=== PATIENT | female | born 1965 | race African-American/Black ===

== ENCOUNTER 2021-01-11 12:52 | Emergency (ER) | payer MEDICAID ==
[~2021-01-11] VITALS: Ht 157.5 cm; Wt 73.0 kg
[2021-01-11 12:58] VITALS: BP 146/82
[2021-01-11] MEDS ORDERED: KETOROLAC 30MG/ML VIAL IM ONE (13:30)
[2021-01-11] MEDS ORDERED: ACETAMINOPHEN 325MG TABLET PO ONE (13:30)
[2021-01-11] MEDS ORDERED: NAPR-1176 MT (14:20)
[2021-01-11] MEDS ORDERED: TOPUD MT (14:20)
== END 2021-01-11 14:30 | disposition home or self-care (01) ==
LOC: ER 12:52
DX: M54.5 Low back pain (principal); G89.29 Other chronic pain; M54.30 Sciatica, unspecified side; I10 Essential (primary) hypertension; Z88.0 Allergy status to penicillin; Z88.2 Allergy status to sulfonamides; Z88.3 Allergy status to other anti-infective agents; Z91.040 Latex allergy status
CPT/HCPCS: 81025; 96372; 99283; J1885

== ENCOUNTER 2024-01-16 18:49 | Inpatient (IN) | payer OTHER, MEDICAID ==
[~2024-01-16] VITALS: Ht 149.9 cm; Wt 53.1 kg
[~2024-01-16 18:49] MED LIST: NAPR-1176 MT; TOPUD MT
[2024-01-16 20:16] LABS: HEMATOCRIT. 40.4 % (36.0-48.0); MEAN CORPUSCULAR HEMOGLOBIN 31.6 pg (28.0-32.0); MEAN CORPUSCULAR HGB CONC 32.2 g/dL (31.0-37.0); MEAN CORPUSCULAR VOLUME 98.2 fL (81.0-99.0); MEAN PLATELET VOLUME 7.5 fl (7.4-10.4); PLATELET 508 x1000/uL (130-400); RED BLOOD CELL COUNT 4.11 mill/uL (4.2-5.4); RED CELL DISTRIBUTION WIDTH 14.5 % (11.6-14.6); WHITE BLOOD COUNT 22.9 x1000/uL (4.5-11.0)
[2024-01-16 20:18] LABS: CHLORIDE 105 mEq/L (98-107); POTASSIUM 4.1 mEq/L (3.5-5.1); SODIUM 140 mEq/L (136-145)
[2024-01-16 20:19] LABS: CARBON DIOXIDE 19 mEq/L (21-32)
[2024-01-16 20:20] LABS: CALCIUM 9.8 mg/dL (8.7-10.4)
[2024-01-16 20:23] LABS: DIFFERENTIAL COMMENT 1
[2024-01-16 20:24] LABS: CREATININE 0.7 mg/dL (0.6-1.0); GLUCOSE 60 mg/dL (70-105); UREA NITROGEN BLOOD 14 mg/dL (9-23)
[2024-01-16 20:25] LABS: TROPONIN I HIGH SENSITIVITY 9 ng/L (3.0-34)
[2024-01-16] MEDS: NITROGLYCERIN 0.4MG TABLET SL SL ONE (21:10)
[2024-01-16 22:23] LABS: TROPONIN I HIGH SENSITIVITY 13 ng/L (3.0-34)
[2024-01-16 22:31] LABS: LACTIC ACID 4.1 mmol/L (0.4-2.0)
[2024-01-16] MEDS ORDERED: SODIUM CHLORIDE 0.9% 1,000 ML IV ONE (23:30)
[2024-01-16 23:56] LABS: CLARITY URINE CLEAR (CLEAR); COLOR URINE YELLOW (YELLOW); GLUCOSE URINE NEGATIVE (NEGATIVE); KETONES URINE 2+ (NEGATIVE); LEUKOCYTE ESTERASE URINE NEGATIVE (NEGATIVE); NITRITE URINE NEGATIVE (NEGATIVE); OCCULT BLOOD URINE 2+ (NEGATIVE); PH URINE 5.5 (4.5-8.0); PROTEIN URINE 1+ (NEGATIVE); SPECIFIC GRAVITY URINE 1.014 (1.005-1.030)
[2024-01-17 03:11] LABS: SQUAMOUS EPITHELIAL CELL URINE FEW /lpf (RARE/1+)
[2024-01-17 03:12] LABS: RBC URINE 0-2 /hpf (0-2); WBC URINE 0-2 /hpf (0-2)
[2024-01-17 03:13] LABS: BACTERIA URINE NONE SEEN
[2024-01-17] MEDS: SODIUM CHLORIDE 0.9% 1000ML BAG (SEPSIS BOLUS) IV ONE ×2 (04:36)
[2024-01-17] MEDS: CEFTRIAXONE 2GM/50ML 50 ML IV ONE (04:37)
[2024-01-17 07:39] LABS: TROPONIN I HIGH SENSITIVITY 21 ng/L (3.0-34)
[2024-01-17] MEDS ORDERED: IPRATROPIUM/ALBUTEROL 0.5-3(2.5)MG/3ML NEB HHN PRN (09:30)
[2024-01-17] MEDS ORDERED: CLONIDINE 0.1MG TABLET PO PRN (09:30)
[2024-01-17] MEDS ORDERED: DIPHENHYDRAMINE 50MG/ML VIAL IV PRN (09:30)
[2024-01-17] MEDS ORDERED: ONDANSETRON HCL 4MG/2ML INJ IV PRN (09:30)
[2024-01-17 10:49] VITALS: BP 126/87; PULSE 85; RESP 18; TEMP 36.9184
[2024-01-17] MEDS ORDERED: LEVOFLOXACIN 500MG PREMIX 100 ML IV SCH (11:00)
[2024-01-17] MEDS: ACETAMINOPHEN 325MG TABLET PO PRN (11:36)
[2024-01-17 11:39] LABS: PLATELET ESTIMATE INCREASED
[2024-01-17] MEDS ORDERED: PARO-150 PO (11:39)
[2024-01-17 12:00] VITALS: BP 126/67; PULSE 79; RESP 20; TEMP 36.55848; O2SAT 95
[2024-01-17] MEDS: PAROXETINE HCL 10MG TABLET PO SCH (13:29)
[2024-01-17] MEDS: LEVOFLOXACIN 500MG PREMIX 100 ML IV SCH (13:30)
[2024-01-17 14:36] LABS: *AMPHETAMINES SCREEN URINE NEGATIVE (NEGATIVE); *BARBITURATES SCREEN URINE NEGATIVE (NEGATIVE); *BENZODIAZEPINES SCREEN URINE NEGATIVE (NEGATIVE); *COCAINE SCREEN URINE NEGATIVE (NEGATIVE); METHADONE URINE SCREEN NEGATIVE (NEGATIVE); OPIATES URINE SCREEN NEGATIVE (NEGATIVE); PHENCYCLIDINE URINE SCREEN NEGATIVE (NEGATIVE)
[2024-01-17 14:37] LABS: CANNABINOID URINE SCREEN PRESUMPTIVE POSITIVE (NEGATIVE); ECSTASY MDMA SCREEN URINE NEGATIVE (NEGATIVE)
[2024-01-17 16:00] VITALS: BP 126/62; PULSE 71; RESP 18; TEMP 36.55848; O2SAT 96
[2024-01-17] MEDS: LORATADINE 10MG TABLET PO PRN (16:29)
[2024-01-17] MEDS: LEVOFLOXACIN 250MG PREMIX 50 ML IV SCH (16:29)
[2024-01-17 20:00] VITALS: BP 131/70; PULSE 78; RESP 19; TEMP 36.6696; O2SAT 96
[2024-01-18] VITALS: BP 139/76; PULSE 70; RESP 19; TEMP 36.6696; O2SAT 97
[2024-01-18 04:00] VITALS: BP 148/80; PULSE 65; RESP 18; TEMP 36.72516; O2SAT 96
[2024-01-18 06:37] LABS: BASOPHILS % 1.2 % (0.0-2.0); EOSINOPHILS % 0.4 % (0.0-5.0); HEMATOCRIT. 38.9 % (36.0-48.0); HEMOGLOBIN. 12.8 g/dL (12.0-16.0); LYMPHOCYTES % 38.1 % (20.0-50.0); MEAN CORPUSCULAR HEMOGLOBIN 31.9 pg (28.0-32.0); MEAN CORPUSCULAR HGB CONC 32.8 g/dL (31.0-37.0); MEAN CORPUSCULAR VOLUME 97.1 fL (81.0-99.0); MEAN PLATELET VOLUME 7.7 fl (7.4-10.4); MONOCYTES % 7.4 % (2.0-8.0); NEUTROPHILS % 52.9 % (40.0-76.0); PLATELET 452 x1000/uL (130-400); RED CELL DISTRIBUTION WIDTH 14.2 % (11.6-14.6)
[2024-01-18 07:31] LABS: CALCIUM 9.9 mg/dL (8.7-10.4); CARBON DIOXIDE 27 mEq/L (21-32); CHLORIDE 108 mEq/L (98-107); POTASSIUM 3.6 mEq/L (3.5-5.1); SODIUM 142 mEq/L (136-145)
[2024-01-18 07:36] LABS: CREATININE 0.8 mg/dL (0.6-1.0)
[2024-01-18 07:37] LABS: GLUCOSE 89 mg/dL (70-105); UREA NITROGEN BLOOD 14 mg/dL (9-23)
[2024-01-18 08:00] VITALS: BP 144/58; PULSE 98; RESP 18; TEMP 36.72516; O2SAT 98
[2024-01-18 12:00] VITALS: BP 122/82; PULSE 73; RESP 17; TEMP 36.28068; O2SAT 97
[2024-01-18 13:01] VITALS: BP 125/78; PULSE 75; TEMP 97.9; O2SAT 98
[2024-01-18] MEDS ORDERED: LEVOFLOXACIN 750MG PREMIX 150 ML IV SCH (15:00)
[2024-01-19] MEDS ORDERED: LEVOFLOXACIN 250MG TABLET PO SCH (11:00)
== END 2024-01-18 14:00 | disposition home or self-care (01) | DRG 313 ==
LOC: ER 18:49 → EDBEDREQ 01-17 01:25 → EDBEDREQTM 01-17 01:25 → 7EST 01-17 10:49
PROVIDERS: ADMIT Internal Medicine; ATTEND Internal Medicine
DX: R07.89 Other chest pain (principal); D72.829 Elevated white blood cell count, unspecified; I10 Essential (primary) hypertension; Z88.0 Allergy status to penicillin; Z91.010 Allergy to peanuts; Z91.013 Allergy to seafood; Z88.2 Allergy status to sulfonamides; Z88.1 Allergy status to other antibiotic agents; Z91.040 Latex allergy status
CPT/HCPCS: 36415; 71045; 80048; 80305; 80307; 80329; 81003; 82962; 83605; 83880; 84145; 84484; 85025; 93005; 99285; J0696; J1956; J7030